=== PATIENT | female | born 1980 | race Caucasian/White ===

== ENCOUNTER 2017-06-18 13:43 | Emergency (ER) | payer MEDICAID, OTHER ==
[~2017-06-18] VITALS: Ht 5787.1 cm; Wt 61.5 kg
[~2017-06-18 13:43] MED LIST: NO HOME MEDS; RIZA5TAB34 PO
[2017-06-18 13:48] VITALS: BP 108/62
[2017-06-18] MEDS ORDERED: ondansetron 4mg rapidly disintigrating tab PO ONE (13:50)
[2017-06-18 14:21] LABS: URINE HCG NEGATIVE (NEG)
[2017-06-18 14:24] LABS: CLARITY,URINE CLEAR (Clear); COLOR,URINE YELLOW (Yellow); GLUCOSE, URINE NEGATIVE (Neg); KETONES,URINE NEGATIVE (Neg); LEUKOCYTE ESTERASE ,URINE NEGATIVE (Neg); NITRITES, URINE NEGATIVE (Neg); OCCULT BLOOD,URINE NEGATIVE (Neg); PROTEIN,URINE NEGATIVE (Neg); UROBILINOGEN,URINE 0.2 E.U/dL (0.2-1.0)
[2017-06-18 14:26] LABS: BASOPHILS % (AUTO) 0.7 % (0-1); EOSINOPHILS # (AUTO) 0.2 X10'3 (0-0.9); EOSINOPHILS % (AUTO) 3.9 % (0-6); HEMATOCRIT 36.5 % (35.0-45.0); HEMOGLOBIN 12.3 g/dl (12.0-16.0); LYMPHOCYTES # (AUTO) 1.8 X10'3 (1.1-4.8); LYMPHOCYTES % (AUTO) 36.1 % (21-51); MEAN CORPUSCULAR HEMOGLOBIN 29.2 PG (27.0-31.0); MEAN CORPUSCULAR HGB CONC 33.6 % (33.0-36.5); MEAN CORPUSCULAR VOLUME 86.8 FL (78-98); MEAN PLATELET VOLUME 7.6 FL (7.4-10.4); MONOCYTES # (AUTO) 0.3 X10'3 (0-0.9); MONOCYTES % (AUTO) 6.5 % (2-12); NEUTROPHILS # (AUTO) 2.7 X10'3 (1.8-7.7); NEUTROPHILS % (AUTO) 52.8 % (42-75); PLATELET COUNT 280 X10'3 (140-440); RED CELL DISTRIBUTION WIDTH 14.1 % (11.5-14.5); WHITE BLOOD COUNT 5.1 X10'3 (4.5-11.0)
[2017-06-18 14:29] LABS: UA COLLECTION TYPE CLN CATCH MIDSTREAM
[2017-06-18 14:41] LABS: ALANINE AMINOTRANSFERASE 34 U/L (12-78); ALBUMIN 3.6 G/DL (3.4-5.0); ALBUMIN/GLOBULIN RATIO 1.1 (1.1-1.5); ALKALINE PHOSPHATASE 36 IU/L (46-116); ANION GAP 6 (8-16); ASPARTATE AMINO TRANSFERASE 26 U/L (10-37); BILIRUBIN,TOTAL 0.4 MG/DL (0.1-1.0); BLOOD UREA NITROGEN 20 MG/DL (7-18); BUN/CREATININE RATIO 19.8 (6.6-38.0); CALCIUM 8.4 MG/DL (8.5-10.1); CHLORIDE 104 MMOL/L (99-107); CREATININE 1.01 MG/DL (0.40-0.90); GLUCOSE 86 MG/DL (70-104); POTASSIUM 3.8 MMOL/L (3.5-5.1); SODIUM 141 MMOL/L (135-145); TOTAL CARBON DIOXIDE 30.9 MMOL/L (24-32); TOTAL PROTEIN 6.9 G/DL (6.4-8.2); eGFR 62 ML/MIN
[2017-06-18] MEDS ORDERED: ONDA4TAB9 PO (14:52)
== END 2017-06-18 15:01 | disposition home or self-care (01) ==
LOC: ER 13:43
DX: R10.9 Unspecified abdominal pain (principal); B34.9 Viral infection, unspecified; E86.0 Dehydration; F12.10 Cannabis abuse, uncomplicated
CPT/HCPCS: 36415; 80053; 81003; 81025; 85025; 99284

== ENCOUNTER 2018-04-13 10:32 | Emergency (ER) | payer MEDICAID, OTHER ==
[~2018-04-13] VITALS: Ht 175.3 cm; Wt 56.0 kg
[2018-04-13 11:00] LABS: CLARITY,URINE CLOUDY (Clear); COLOR,URINE YELLOW (Yellow); GLUCOSE, URINE NEGATIVE (Neg); KETONES,URINE TRACE mg/dl (Neg); LEUKOCYTE ESTERASE ,URINE NEGATIVE (Neg); NITRITES, URINE POSITIVE (Neg); OCCULT BLOOD,URINE NEGATIVE (Neg); PH,URINE 5.5 (4.8-8.0); PROTEIN,URINE TRACE mg/dl (Neg)
[2018-04-13 11:03] LABS: UA COLLECTION TYPE CLN CATCH MIDSTREAM; URINE HCG NEGATIVE (NEG)
--- NOTE | 2018-04-13 11:06 | NUR ---
UA REJECTED PER LAB
[2018-04-13 11:07] LABS: BACTERIA,URINE 1+ /HPF (Neg); MUCUS STRANDS FEW /LPF (Neg); RBC,URINE NONE SEEN /HPF (0-2); SQUAMOUS EPITHELIAL CELL,UR MANY /LPF (FEW); WBC,URINE 20-30 /HPF (0-4)
[2018-04-13 11:19] LABS: BASOPHILS % (AUTO) 0.7 % (0-1); EOSINOPHILS # (AUTO) 0.2 X10'3 (0-0.9); EOSINOPHILS % (AUTO) 2.5 % (0-6); HEMATOCRIT 44.9 % (35.0-45.0); HEMOGLOBIN 14.8 g/dl (12.0-16.0); LYMPHOCYTES # (AUTO) 1.6 X10'3 (1.1-4.8); MEAN CORPUSCULAR HEMOGLOBIN 29.1 PG (27.0-31.0); MEAN CORPUSCULAR HGB CONC 32.9 % (33.0-36.5); MEAN CORPUSCULAR VOLUME 88.5 FL (78-98); MEAN PLATELET VOLUME 7.7 FL (7.4-10.4); MONOCYTES # (AUTO) 0.4 X10'3 (0-0.9); MONOCYTES % (AUTO) 6.7 % (2-12); NEUTROPHILS % (AUTO) 64.1 % (42-75); PLATELET COUNT 424 X10'3 (140-440); RED BLOOD COUNT 5.08 X10'6 (4.20-5.60); RED CELL DISTRIBUTION WIDTH 14.6 % (11.5-14.5); WHITE BLOOD COUNT 6.3 X10'3 (4.5-11.0)
[2018-04-13 11:28] LABS: ALANINE AMINOTRANSFERASE 43 U/L (12-78); ALBUMIN 4.6 G/DL (3.4-5.0); ALBUMIN/GLOBULIN RATIO 1.1 (1.1-1.5); ALKALINE PHOSPHATASE 77 IU/L (46-116); ANION GAP 13 (8-16); ASPARTATE AMINO TRANSFERASE 38 U/L (10-37); BILIRUBIN,TOTAL 0.5 MG/DL (0.1-1.0); BLOOD UREA NITROGEN 17 MG/DL (7-18); BUN/CREATININE RATIO 17.7 (6.6-38.0); CALCIUM 9.1 MG/DL (8.5-10.1); CHLORIDE 99 MMOL/L (99-107); CREATININE 0.96 MG/DL (0.40-0.90); GLUCOSE 97 MG/DL (70-104); LIPASE 181 U/L (73-393); POTASSIUM 3.9 MMOL/L (3.5-5.1); SODIUM 140 MMOL/L (135-145); TOTAL CARBON DIOXIDE 28.2 MMOL/L (24-32); TOTAL PROTEIN 8.8 G/DL (6.4-8.2); eGFR 66 ML/MIN
[2018-04-13] MEDS ORDERED: LOPE-155 PO (12:14)
[2018-04-13] MEDS ORDERED: ONDA4TAB6 PO (12:14)
[2018-04-13 12:30] VITALS: BP 136/85
== END 2018-04-13 12:31 | disposition home or self-care (01) ==
LOC: ER 10:33
DX: R11.2 Nausea with vomiting, unspecified (principal); R19.7 Diarrhea, unspecified; M54.5 Low back pain; G43.909 Migraine, unspecified, not intractable, without status migrainosus; F12.90 Cannabis use, unspecified, uncomplicated
CPT/HCPCS: 36415; 80053; 81001; 81025; 83690; 85025; 85610; 99284

== ENCOUNTER 2018-04-24 10:20 | Emergency (ER) | payer MEDICAID ==
[~2018-04-24] VITALS: Ht 175.3 cm; Wt 58.6 kg
[~2018-04-24 10:20] MED LIST changes: +LOPE-155 PO; +ONDA4TAB6 PO
[2018-04-24 10:23] VITALS: BP 136/88
[2018-04-24] MEDS ORDERED: SUMAtriptan 5 mg Nasal Spray NS ONE (11:45)
[2018-04-24] MEDS ORDERED: SUMAtriptan succ. 6 MG/0.5ml vial SQ ONE (11:50)
[2018-04-24] MEDS ORDERED: ondansetron 4mg rapidly disintigrating tab PO ONE (12:20)
[2018-04-24] MEDS ORDERED: ONDA4TAB6 PO (12:45)
[2018-04-24] MEDS ORDERED: IMI20NS NS (12:45)
== END 2018-04-24 12:57 | disposition home or self-care (01) ==
LOC: ER 10:20
DX: G43.909 Migraine, unspecified, not intractable, without status migrainosus (principal); F12.90 Cannabis use, unspecified, uncomplicated; Z79.899 Other long term (current) drug therapy
CPT/HCPCS: 96372; 99283; J3030

== ENCOUNTER 2018-10-23 07:13 | Emergency (ER) | payer MEDICAID, OTHER ==
[~2018-10-23] VITALS: Ht 170.2 cm; Wt 61.4 kg
[~2018-10-23 07:13] MED LIST changes: -LOPE-155 PO; +LOPE-190 PO
--- NOTE | 2018-10-23 07:14 | NUR ---
per Koby/friend,patient took a new bottle of benadryl pill elan an hour [employer].
[2018-10-23] MEDS ORDERED: sodium bicarbonate (8.4%) 1 mEq/ml syringe IV ONE (07:20)
[2018-10-23] MEDS ORDERED: normal saline 1000ml 1,000 ML IV ONE (07:25)
--- NOTE | 2018-10-23 07:31 | NUR ---
CALLED POISON CONTROL AND SPOKE WITH MADHU. SHE RECOMMENDED MONITORING THE PT FOR 4-6 HOURS. PT COULD HAVE TACHYCARDIA AND HTN OR SHE COULD HALLUCINATE AND GET ANXIOUS (IF THIS HAPPENS GIVE BENZOs). THEY SUGGEST WATCHING HER QRS FOR WIDENING BEYOND 120MILISECONDS, IF THIS HAPPENS GIVE HER A COUPLE AMPS OF BICARB. SUGGESTED TO DO A CMP, LIVER ENZYMES, FULL TOX SCREEN, EKG. MD BOURGEOIS AWARE.
[2018-10-23 07:58] LABS: URINE HCG NEGATIVE (NEG)
--- NOTE | 2018-10-23 08:00 | NUR ---
patient voided on the bed even after offering a bedpan,beddings and gown changed.friend at bedside.
[2018-10-23 08:03] LABS: URINE AMPHETAMINE SCREEN NEGATIVE (Neg); URINE BARBITUATE SCREEN NEGATIVE (Neg); URINE BENZODIAZEPINES SCREEN NEGATIVE (Neg); URINE CANNABINOID SCREEN POSITIVE (Neg); URINE COCAINE SCREEN POSITIVE (Neg); URINE METHADONE SCREEN NEGATIVE (Neg); URINE OPIATE SCREEN POSITIVE (Neg); URINE PHENCYCLIDINE SCREEN NEGATIVE (Neg)
[2018-10-23 08:09] LABS: BASOPHILS % (AUTO) 0.6 % (0-1); EOSINOPHILS # (AUTO) 0.2 X10'3 (0-0.9); EOSINOPHILS % (AUTO) 3.7 % (0-6); HEMATOCRIT 41.1 % (35.0-45.0); HEMOGLOBIN 13.4 g/dl (12.0-16.0); LYMPHOCYTES % (AUTO) 34.3 % (21-51); MEAN CORPUSCULAR HEMOGLOBIN 29.2 PG (27.0-31.0); MEAN CORPUSCULAR HGB CONC 32.8 g/dL (33.0-36.5); MEAN CORPUSCULAR VOLUME 89.1 FL (78-98); MEAN PLATELET VOLUME 7.6 FL (7.4-10.4); MONOCYTES # (AUTO) 0.5 X10'3 (0-0.9); MONOCYTES % (AUTO) 7.8 % (2-12); NEUTROPHILS # (AUTO) 3.1 X10'3 (1.8-7.7); NEUTROPHILS % (AUTO) 53.6 % (42-75); PLATELET COUNT 294 X10'3 (140-440); RED BLOOD COUNT 4.61 X10'6 (4.20-5.60); RED CELL DISTRIBUTION WIDTH 14.6 % (11.5-14.5); WHITE BLOOD COUNT 5.8 X10'3 (4.5-11.0)
[2018-10-23 08:18] LABS: CLARITY,URINE TURBID (Clear); COLOR,URINE YELLOW (Yellow); GLUCOSE, URINE NEGATIVE (Neg); KETONES,URINE NEGATIVE (Neg); LEUKOCYTE ESTERASE ,URINE SMALL (Neg); NITRITES, URINE NEGATIVE (Neg); OCCULT BLOOD,URINE NEGATIVE (Neg); PROTEIN,URINE NEGATIVE (Neg); UROBILINOGEN,URINE 0.2 E.U/dL (0.2-1.0)
[2018-10-23 08:28] LABS: UA COLLECTION TYPE STRAIGHT CATH
[2018-10-23 08:29] LABS: ALANINE AMINOTRANSFERASE 25 U/L (12-78); ALBUMIN 3.7 G/DL (3.4-5.0); ALBUMIN/GLOBULIN RATIO 1.1 (1.1-1.5); ALKALINE PHOSPHATASE 39 IU/L (46-116); ANION GAP 10 (8-16); ASPARTATE AMINO TRANSFERASE 20 U/L (10-37); BILIRUBIN,TOTAL 0.2 MG/DL (0.1-1.0); BLOOD UREA NITROGEN 13 MG/DL (7-18); BUN/CREATININE RATIO 12.5 (6.6-38.0); CALCIUM 8.2 MG/DL (8.5-10.1); CHLORIDE 109 MMOL/L (99-107); CREATININE 1.04 MG/DL (0.40-0.90); ETHANOL 0.179 GM/DL (0.0-0.010); POTASSIUM 3.5 MMOL/L (3.5-5.1); SODIUM 146 MMOL/L (135-145); TOTAL CARBON DIOXIDE 27.5 MMOL/L (24-32); eGFR 60 ML/MIN
[2018-10-23 08:29] LABS: BACTERIA,URINE 3+ /HPF (Neg); RBC,URINE NONE SEEN /HPF (0-2); SQUAMOUS EPITHELIAL CELL,UR MANY /LPF (FEW); WBC,URINE 0-4 /HPF (0-4)
[2018-10-23 08:30] LABS: ACETAMINOPHEN < 2.0 UG/ML (10-30); GLUCOSE 48 MG/DL (70-104)
[2018-10-23] MEDS ORDERED: dextrose 50%-water 50ml dispensing syringe IV ONE (08:35)
--- NOTE | 2018-10-23 09:06 | NUR ---
beddings changed again.
--- NOTE | 2018-10-23 10:46 | NUR ---
poison control/lucho repeat dose of salicylate and cmp at 1200.
[2018-10-23 12:07] LABS: ALANINE AMINOTRANSFERASE 27 U/L (12-78); ALBUMIN 3.6 G/DL (3.4-5.0); ALBUMIN/GLOBULIN RATIO 1.1 (1.1-1.5); ALKALINE PHOSPHATASE 41 IU/L (46-116); ANION GAP 10 (8-16); ASPARTATE AMINO TRANSFERASE 17 U/L (10-37); BILIRUBIN,TOTAL 0.2 MG/DL (0.1-1.0); BLOOD UREA NITROGEN 13 MG/DL (7-18); BUN/CREATININE RATIO 14.6 (6.6-38.0); CALCIUM 8.5 MG/DL (8.5-10.1); CHLORIDE 108 MMOL/L (99-107); CREATININE 0.89 MG/DL (0.40-0.90); GLUCOSE 79 MG/DL (70-104); POTASSIUM 3.9 MMOL/L (3.5-5.1); SODIUM 144 MMOL/L (135-145); TOTAL CARBON DIOXIDE 26.1 MMOL/L (24-32); eGFR 71 ML/MIN
--- NOTE | 2018-10-23 12:50 | NUR ---
patient more alert at this time,conversant but mumbles.
--- NOTE | 2018-10-23 14:00 | NUR ---
POISON CONTROL CALLED AND F/U ON PTS REDRAWN LAB VALUES. PT CASE CLOSED UPON RE-EVAL OF PT LABS
--- NOTE | 2018-10-23 14:10 | NUR ---
PT WITH SIGNIFICANT OTHER VISITING AT BED SIDE, PT MOTHER HAD LEFT WHOM WAS EARLIER VISITING PT.
[2018-10-23 17:55] VITALS: BP 130/83
--- NOTE | 2018-10-23 18:10 | NUR ---
PT NOW ACTIVELY INTERACTING WITH [facility] AND [facility] AND IS ARGUING WITH THEM. MD DAVIS NOTIFIED AND PT TO RECEIVE MEDS.
--- NOTE | 2018-10-23 19:55 | NUR ---
Patient's mother Enid called, wanted updat. Enid informed, with patient's permission, that patient has been evaluated by mental health but have not yet heard results. Enid stated to call her if need anything at .
--- NOTE | 2018-10-23 20:15 | NUR ---
Roby from stated patient to be released, he already called boyfriend to pick patient up. Patient granted permission for RN to inform mother.
== END 2018-10-23 21:05 | disposition home or self-care (01) ==
LOC: ER 07:13
DX: R11.10 Vomiting, unspecified (principal); T45.0X2A Poisoning by antiallergic and antiemetic drugs, intentional self-harm, initial encounter; F32.9 Major depressive disorder, single episode, unspecified; F12.90 Cannabis use, unspecified, uncomplicated; Z79.899 Other long term (current) drug therapy; Y92.89 Other specified places as the place of occurrence of the external cause
CPT/HCPCS: 36415; 80053; 80305; 80320; 80329; 81001; 81025; 82948; 84443; 85025; 93005; 96374; 96375; 99284; J7030

== ENCOUNTER 2019-02-01 09:48 | Emergency (ER) | payer MEDICAID, OTHER ==
[~2019-02-01] VITALS: Ht 175.3 cm; Wt 57.0 kg
[2019-02-01 09:54] VITALS: BP 143/89
[2019-02-01] MEDS ORDERED: LIDOcaine 1% W/epiNEPHrine 1:100,000 20ml vial ONE (11:00)
[2019-02-01] MEDS ORDERED: TETanus/Pertussis (Acell)/Diphther VAC/PF (Tdap-Adult) 0.5ml syringe IMVAC ONE (11:25)
[2019-02-01] MEDS ORDERED: HYDROcodone/acetaminophen 5mg/325mg tablet PO ONE (11:35)
[2019-02-01] MEDS ORDERED: HYDR-3965 PO (11:44)
[2019-02-01] MEDS ORDERED: CEPH-572 PO (11:52)
== END 2019-02-01 11:57 | disposition home or self-care (01) ==
LOC: ER 09:49
DX: S91.112A Laceration without foreign body of left great toe without damage to nail, initial encounter (principal); F10.10 Alcohol abuse, uncomplicated; G43.909 Migraine, unspecified, not intractable, without status migrainosus; F12.90 Cannabis use, unspecified, uncomplicated; W22.8XXA Striking against or struck by other objects, initial encounter; Y93.89 Activity, other specified; Y92.89 Other specified places as the place of occurrence of the external cause; Y99.9 Unspecified external cause status; Y90.9 Presence of alcohol in blood, level not specified
CPT/HCPCS: 12002; 73660; 90471; 99283

== ENCOUNTER 2024-01-09 14:47 | Emergency (ER) | payer MEDICAID ==
[~2024-01-09] VITALS: Ht 175.3 cm; Wt 56.8 kg
[2024-01-09] VITALS (7 sets, daily range): BP systolic 95–103; BP diastolic 50–60; PULSE 51–98; RESP 12–22; TEMP 98.1; O2SAT 95–99
[2024-01-09] MEDS: nitroGLYCERIN 0.4mg SUBLingual tab SL PRN (16:45)
[2024-01-09] MEDS: glucagon, human recombinant 1mg kit IV ONE (17:30)
[2024-01-09] MEDS: normal saline 1000ML IV soln IVB ONE (17:30)
[2024-01-09] MEDS: LORazepam 2 mg/ml vial IV ONE (17:50)
[2024-01-09] MEDS ORDERED: LIDOcaine 2% Viscous 15ml cup ONE (18:18)
[2024-01-09] MEDS ORDERED: fentaNYL/PF 50MCG/1 ML 2ML syringe ONE (19:18)
[2024-01-09] MEDS ORDERED: MIDAZolam 1 MG/ML 5ML VIAL ONE (19:18)
[2024-01-09 19:36] LABS: PREOP URINE HCG NEGATIVE (NEGATIVE)
[2024-01-09] MEDS ORDERED: simethicone 40mg/0.6ml oral drops 30ml ONE (20:00)
== END 2024-01-09 22:32 | disposition home or self-care (01) ==
LOC: ER 14:47
DX: T18.128A Food in esophagus causing other injury, initial encounter (principal); G43.909 Migraine, unspecified, not intractable, without status migrainosus; E11.649 Type 2 diabetes mellitus with hypoglycemia without coma; F32.A Depression, unspecified; F12.90 Cannabis use, unspecified, uncomplicated; Z72.89 Other problems related to lifestyle; Z79.899 Other long term (current) drug therapy; W44.F3XA Food entering into or through a natural orifice, initial encounter; Y93.89 Activity, other specified; Y92.89 Other specified places as the place of occurrence of the external cause; Y99.8 Other external cause status
CPT/HCPCS: 43239; 43247; 81025; 96361; 96374; 96375; 99285; J1610; J2060; J2250; J3010; J7030; Z7512; 99152; 99153; A4620; C1889